=== PATIENT | female | born 1985 | race Asian ===

== ENCOUNTER → 2016-11-06 12:55 | Outpatient (CLI) | payer MEDICARE ==
[2010-02-21 09:04] VITALS: BMI 19.9
[2016-11-06 13:27] LABS: EOSINOPHILS 7.7 % (0-7); HEMATOCRIT 38.9 % (36.0-48.0); HEMOGLOBIN 11.5 g/dL (12-16); MCH 22.7 pg (26.0-34.0); MCHC 29.6 g/dL (31.0-37.0); MCV 76.7 fL (80.0-100.0); MEAN PLATELET VOLUME 11.3 fL (7.4-10.4); MONOCYTES 7.5 % (2-11); NEUTROPHILS 37.8 % (40-80); PLATELET COUNT 155 10x3/uL (130-400); RBC 5.07 10x6/uL (4.00-5.40); WBC 4.8 10x3/uL (4.8-10.8)
[2016-11-06 14:26] LABS: ALKALINE PHOSPHATASE 79 U/L (46-116); ALT (SGPT) 17 U/L (10-68); BILIRUBIN - TOTAL 0.38 mg/dL (0.2-1.3); CALC OSMOLALITY 275 mosm/kg (275-300); CALCIUM 8.8 mg/dL (8.5-10.1); CARBON DIOXIDE 26.7 mmol/L (21.0-32.0); CHLORIDE - SERUM 103 mmol/L (98-107); CREATININE - SERUM 0.4 mg/dL (0.6-1.3); GLUCOSE 86 mg/dL (74-106); POTASSIUM - SERUM 4.1 mmol/L (3.5-5.1); PROTEIN - SERUM 7.8 g/dL (6.4-8.2); SODIUM 138 mmol/L (136-145); THYROID STIMULATING HORMONE 1.02 uIU/mL (0.36-3.74); UREA NITROGEN 16 mg/dL (7-18); eGFR NON AFRICAN AMERICAN > 90 mL/min (90-120)
== END | disposition home or self-care (01) ==
LOC: D.LAB 09:15
PROVIDERS: Family Medicine
DX: Z00.00 Encounter for general adult medical examination without abnormal findings (principal); D64.9 Anemia, unspecified; R53.83 Other fatigue; G43.909 Migraine, unspecified, not intractable, without status migrainosus; F41.8 Other specified anxiety disorders; G47.00 Insomnia, unspecified

== ENCOUNTER → 2018-08-15 15:30 | Outpatient (CLI) | payer MEDICARE ==
[2010-02-21 09:04] VITALS: BMI 19.9
[2018-08-15 15:17] LABS: BASOPHILS 0.4 % (0-2); EOSINOPHILS 5.3 % (0-7); HEMATOCRIT 35.3 % (36.0-48.0); LYMPHOCYTES 42.1 % (15-50); MCH 23.2 pg (26.0-34.0); MCHC 31.2 g/dL (31.0-37.0); MCV 74.5 fL (80.0-100.0); MEAN PLATELET VOLUME 10.6 fL (7.4-10.4); MONOCYTES 7.9 % (2-11); NEUTROPHILS 44.3 % (40-80); RBC 4.74 10x6/uL (4.00-5.40); RDW 16.8 % (11.5-14.5); WBC 5.3 10x3/uL (4.8-10.8)
[2018-08-15 15:19] LABS: PLATELET COUNT 234 10x3/uL (130-400)
[2018-08-15 15:38] LABS: ALBUMIN 3.7 g/dL (3.4-5.0); ALKALINE PHOSPHATASE 96 U/L (46-116); ALT (SGPT) 18 U/L (10-68); BILIRUBIN - TOTAL 0.24 mg/dL (0.2-1.3); CALC OSMOLALITY 274 mosm/kg (275-300); CALCIUM 8.4 mg/dL (8.5-10.1); CARBON DIOXIDE 25.5 mmol/L (21.0-32.0); CHLORIDE - SERUM 102 mmol/L (98-107); CHOLESTEROL, TOTAL 189 mg/dL (0-200); CREATININE - SERUM 0.5 mg/dL (0.6-1.3); GLUCOSE 93 mg/dL (74-106); HDL CHOLESTEROL 64 mg/dL (32-96); LDL CHOLESTEROL 103 mg/dL (0-100); LDL-HDL RATIO 1.6 ratio (1.5-3.5); MAGNESIUM - SERUM 2.2 mg/dL (1.8-2.4); POTASSIUM - SERUM 4.2 mmol/L (3.5-5.1); PROTEIN - SERUM 7.9 g/dL (6.4-8.2); SODIUM 138 mmol/L (136-145); THYROID STIMULATING HORMONE 0.82 uIU/mL (0.36-3.74); TRIGLYCERIDE 114 mg/dL (30-200); UREA NITROGEN 11 mg/dL (7-18); eGFR NON AFRICAN AMERICAN > 90 mL/min (90-120)
== END | disposition home or self-care (01) ==
LOC: D.LAB 14:37 → EDSTATUS 15:45
PROVIDERS: Family Medicine
DX: Z00.00 Encounter for general adult medical examination without abnormal findings (principal); R25.9 Unspecified abnormal involuntary movements; F34.1 Dysthymic disorder; G43.109 Migraine with aura, not intractable, without status migrainosus

== ENCOUNTER → 2019-12-15 11:36 | Outpatient (CLI) | payer MEDICARE ==
[2010-02-21 09:04] VITALS: BMI 19.9
[2019-12-15 11:59] LABS: EOSINOPHILS 7.1 % (0-7); HEMATOCRIT 35.2 % (36.0-48.0); HEMOGLOBIN 10.4 g/dL (12-16); IMMATURE GRANULOCYTES 0.2 % (0-5); MCHC 29.5 g/dL (31.0-37.0); MCV 77.9 fL (80.0-100.0); MONOCYTES 7.9 % (2-11); NEUTROPHILS 46.8 % (40-80); RBC 4.52 10x6/uL (4.00-5.40); RDW 17.3 % (11.5-14.5); WBC 4.9 10x3/uL (4.8-10.8)
[2019-12-15 12:00] LABS: PLATELET COUNT 308 10x3/uL (130-400)
[2019-12-15 12:11] LABS: INR 0.91 (0.85-1.17); PROTIME 12.2 SECONDS (11.6-15.0)
== END | disposition home or self-care (01) ==
LOC: D.LAB 11:36
PROVIDERS: ATTEND Family Medicine
DX: R04.0 Epistaxis (principal)